=== PATIENT | male | born 1970 | race Caucasian/White ===

== ENCOUNTER 2017-09-09 15:11 | Inpatient (IN) | payer OTHER ==
[2017-09-09 18:45] VITALS: BMI 28.4
[2017-09-09] MEDS ORDERED: MELATONIN 5 MG TABLETS PO PRN (22:00)
--- NOTE | 2017-09-09 23:40 | HP ---
CIWA Score - CIWA Score Nausea/Vomitin Muscle Tremors: 4-Moderate,w/Arms Extend Anxiety: 4-Mod. Anxious/Guarded Agitation: 4-Moderately Restless Paroxysmal Sweats: 3 Orientation: 2-Disoriented Date<2 days Tacttile Disturbances: 0-None Auditory Disturbances: 0-None Visual Disturbances: 0-None Headache: 3-Moderate CIWA-Ar Total Score: 23 Admission ROS BHS - HPI Chief Complaint: WITHDRAWAL SX'S Allergies/Adverse Reactions: Allergies Allergy/AdvReac Type Severity Reaction Status Date / Time No Known Allergies Allergy Verified 09/09/17 20:14 History of Present Illness: 47 Y.O. MALE WITH LONG HX/O ALCOHOLISM HERE FOR DETOX. THIS IS CLIENT FIRST TIME HERE. DENIES ANY SIGNIFICANT PERIOD OF CLEAN TIME. DENIES SI/HI, A/V HALLUCINATIONS. PMHX HIV, HEPC, NON COMPLIANT WITH MEDICATIONS DUE TO DRINKING. Exam Limitations: No Limitations - Ebola screening Have you traveled outside of the country in the last 21 days: No (N) Have you had contact with anyone from an Ebola affected area: No Have you been sick,other than usual withdrawal symptoms: No Do you have a fever: No - Review of Systems Constitutional: Chills, Night Sweats, Changes in sleep EENT: reports: Dental Problems (missing teeth) Respiratory: reports: No Symptoms reported Cardiac: reports: No Symptoms Reported GI: reports: Diarrhea, Nausea, Poor Fluid Intake : reports: No Symptoms Reported Musculoskeletal: reports: Back Pain (CHRONIC) Integumentary: reports: No Symptoms Reported Neuro: reports: Seizure (ETOH RELATED) Endocrine: reports: No Symptoms Reported Hematology: reports: No Symptoms Reported Psychiatric: reports: Anxious, Depressed Other Systems: Reviewed and Negative Patient History - Patient Medical History Hx Anemia: No Hx Asthma: No Hx Chronic Obstructive Pulmonary Disease (COPD): No Hx Cancer: No Hx Cardiac Disorders: No Hx Congestive Heart Failure: No Hx Hypertension: No Hx Hypercholesterolemia: No Hx Pacemaker: No HX Cerebrovascular Accident: No Hx Seizures: No Hx Dementia: No Hx Diabetes: No Hx Gastrointestinal Disorders: No Hx Liver Disease: No Hx Genitourinary Disorders: No Hx Sexually Transmitted Disorders: No Hx Renal Disease (ESRD): No Hx Thyroid Disease: No Hx Human Immunodeficiency Virus (HIV): Yes (NON COMPLAINT DUE TO DRINKING) Hx Hepatitis C: Yes (NON COMPLAINT WITH TXMENT) Hx Depression: Yes Hx Suicide Attempt: No Hx Bipolar Disorder: No Hx Schizophrenia: Yes Other Medical History: ANXIETY - Patient Surgical History Past Surgical History: Yes Hx Orthopedic Surgery: Yes (Bilateral Knee replacement 2006) Anesthesia Reaction: No - PPD History Previous Implant?: Yes Documented Results: Positive w/o proof Implanted On Prior [facility] Admission?: No PPD to be Administered?: No - Smoking Cessation Smoking history: Current every day smoker Have you smoked in the past 12 months: Yes Aproximately how many cigarettes per day: 20 Cigars Per Day: 0 Hx Chewing Tobacco Use: No Initiated information on smoking cessation: Yes 'Breaking Loose' booklet given: 09/09/17 - Substance & Tx. History Hx Alcohol Use: Yes Hx Substance Use: Yes Substance Use Type: Alcohol, Cocaine, Marijuana Hx Substance Use Treatment: Yes ([facility]) - Substances Abused Alcohol Route: Oral Frequency: Daily Amount used: vodka 1 quart, beer 1 of 40oz Age of first use: 14 Date of Last Use: 09/08/17 Marijuana/Hashish Route: Smoking Frequency: 1-3 times last 30 days Amount used: $5 Age of first use: 16 Date of Last Use: 08/25/17 Cocaine Route: Smoking Frequency: 1-3 times last 30 days Amount used: $5 Age of first use: 16 Date of Last Use: 08/25/17 Family Disease History - Family Disease History Family Disease History: Other: Father (ALCOHOLIC), Mother (ALCOHOLIC), Brother ( ALCOHOLIC/DRUGS) Admission Physical Exam BHS - Vital Signs Vital Signs: Vital Signs - 24 hr 09/09/17 18:42 Temperature 98.6 F Pulse Rate 84 Respiratory 22 Rate Blood Pressure 155/104 - Physical General Appearance: Yes: Mild Distress, Alcohol on Breath, Tremorous, Sweating, Anxious HEENTM: Yes: EOMI, Normocephalic, Normal Voice, BONIFACIO, Pharynx Normal Respiratory: Yes: Chest Non-Tender, Lungs Clear, Normal Breath Sounds, No Respiratory Distress, No Accessory Muscle Use Neck: Yes: No masses,lesions,Nodules, Supple, Trachea in good position Breast: Yes: Breast Exam Deferred Cardiology: Yes: Regular Rhythm, Regular Rate, S1, S2 Abdominal: Yes: Normal Bowel Sounds, Non Tender, Soft Genitourinary: Yes: Within Normal Limits Back: Yes: Normal Inspection Musculoskeletal: Yes: full range of Motion, Gait Steady Extremities: Yes: Normal Capillary Refill, Normal Range of Motion, Non-Tender, Tremors Neurological: Yes: insurance legal assistant II-XII NML intact, Alert, Motor Strength 5/5, Disoriented Integumentary: Yes: Warm, Moist, Other (FLUSHING) Lymphatic: Yes: Within Normal Limits - Diagnostic (1) Alcohol dependence with uncomplicated withdrawal Current Visit: Yes Status: Chronic (2) Cocaine abuse, uncomplicated Current Visit: Yes Status: Chronic (3) Cannabis abuse, uncomplicated Current Visit: Yes Status: Chronic (4) History of positive PPD Current Visit: Yes Status: Chronic (5) Hepatitis C Current Visit: Yes Status: Chronic (6) HIV (human immunodeficiency virus infection) Current Visit: Yes Status: Chronic (7) Nicotine dependence Current Visit: Yes Status: Acute Qualifiers: Nicotine product type: cigarettes Substance use status: uncomplicated Qualified Code(s): F17.210 - Nicotine dependence, cigarettes, uncomplicated Cleared for Admission [facility] - Detox or Rehab [facility] Level of Care: Medically Managed Detox Regimen/Protocol: Ra Claeared for Rehab Admission: No S Breath Alcohol Content Breath Alcohol Content: 0 Urine Drug Screen - Results Drug Screen Negative: No Urine Drug Screen Results: THC-Marijuana, BRIGIDO-Cocaine, BZO-Benzodiazepines
[2017-09-09] MEDS ORDERED: MAGNESIUM CITRATE 300 ML BOTTLE PO PRN (23:41)
[2017-09-09] MEDS ORDERED: IBUPROFEN 400 MG TABLET (FP) PO PRN (23:41)
[2017-09-09] MEDS ORDERED: LOPERAMIDE HCL 2 MG CAPSULE PO PRN (23:41)
[2017-09-09] MEDS ORDERED: guaiFENesin/D-METHORPHAN HB 10 ML UNIT-DOSE CUPS PO PRN (23:41)
[2017-09-09] MEDS ORDERED: hydrOXYzine PAMOATE 50 MG CAPSULE (FP) PO PRN (23:41)
[2017-09-09] MEDS ORDERED: MENTHOL/PHENOL 1 EACH UD MM PRN (23:41)
[2017-09-09] MEDS ORDERED: MAGNESIUM HYDROX 2400MG/30ML ORAL SUSPENSION 30 ML CUP PO PRN (23:41)
[2017-09-09] MEDS ORDERED: NICOTINE POLACRILEX 2 MG GUM BC PRN (23:41)
[2017-09-09] MEDS ORDERED: P-EPHED 60MG/TRIPROLIDI 2.5MG TABLET PO PRN (23:41)
[2017-09-09] MEDS ORDERED: MAG HYDROX/AL HYDROX/SIMETH 30 ML UNIT-DOSE CUP PO PRN (23:41)
[2017-09-10] MEDS: ACETAMINOPHEN 325 MG TABLET (FP) PO PRN ×2 (00:21→17:31)
[2017-09-10] MEDS: chlordiazePOXIDE HCL 25 MG CAPSULE PO SCH ×5 (00:21→22:20)
[2017-09-10 10:09] LABS: HEMATOCRIT 40.6 % (35.4-49); HEMOGLOBIN 14.1 GM/dL (11.7-16.9); MCH 31.3 pg (25.7-33.7); MCHC 34.7 g/dl (32.0-35.9); MEAN CELL VOLUME 90.2 fl (80-96); MEAN PLT VOLUME 7.6 fl (7.5-11.1); PLATELET COUNT 134 K/MM3 (134-434)
[2017-09-10 10:17] LABS: ALBUMIN 3.7 g/dl (3.4-5.0); ANION GAP 5 (8-16); BLOOD UREA NITROGEN 11 mg/dL (7-18); CALCIUM 8.4 mg/dL (8.5-10.1); CHLORIDE 100 mmol/L (98-107); CO2 35 mmol/L (21-32); GLUCOSE,RANDOM 106 mg/dL (74-106); POTASSIUM 3.7 mmol/L (3.5-5.1); SODIUM 140 mmol/L (136-145)
[2017-09-10 10:22] LABS: ALK PHOS 65 U/L (45-117); CREATININE 0.7 mg/dL (0.7-1.3); SGOT/AST 49 U/L (15-37); SGPT/ALT 40 U/L (12-78); TOT PROT 7.9 g/dl (6.4-8.2)
[2017-09-10] MEDS: NICOTINE 21 MG/24 HOURS TOPICAL PATCH TD SCH (10:26)
[2017-09-10] MEDS: PRENATAL VITAMINS W/ FOLIC ACID TABLET (FP) PO SCH (10:26)
--- NOTE | 2017-09-10 11:07 | PN ---
S CIWA - CIWA Score Nausea/Vomitin-No Nausea/No Vomiting Muscle Tremors: 4-Moderate,w/Arms Extend Anxiety: 4-Mod. Anxious/Guarded Agitation: 4-Moderately Restless Paroxysmal Sweats: 1-Minimal Palms Moist Orientation: 0-Oriented Tacttile Disturbances: 0-None Auditory Disturbances: 0-None Visual Disturbances: 0-None Headache: 0-None Present CIWA-Ar Total Score: 13 BHS Progress Note (SOAP) Subjective: ANXIETY,SWEATS, TREMORS,FATIGUE. REPORTS LIBRIUM EFFECTIVE. Objective: 09/10/17 11:05 Vital Signs 09/10/17 09/10/17 09/10/17 03:30 06:13 06:30 Temperature 96.9 F L Pulse Rate 65 Respiratory 18 20 18 Rate Blood Pressure 139/92 Laboratory Tests 09/10/17 09/10/17 07:30 07:30 WBC 5.0 RBC 4.50 Hgb 14.1 Hct 40.6 MCV 90.2 MCH 31.3 MCHC 34.7 RDW 14.0 Plt Count 134 MPV 7.6 Sodium 140 Potassium 3.7 Chloride 100 Carbon Dioxide 35 H Anion Gap 5 L BUN 11 Creatinine 0.7 Creat Clearance w eGFR > 60 Random Glucose 106 Calcium 8.4 L Total Bilirubin 1.0 AST 49 H ALT 40 Alkaline Phosphatase 65 Total Protein 7.9 Albumin 3.7 OTHER LABS PENDING Assessment: 09/10/17 11:06 WITHDRAWAL SX Plan: CONTINUE DETOX
--- NOTE | 2017-09-10 12:03 | EKG ---
Test Reason : Blood Pressure : / mmHG Vent. Rate : 060 BPM Atrial Rate : 060 BPM P-R Int : 170 ms QRS Dur : 106 ms QT Int : 424 ms P-R-T Axes : 022 004 033 degrees QTc Int : 424 ms NORMAL SINUS RHYTHM NORMAL ECG NO PREVIOUS ECGS AVAILABLE Confirmed by DYANA NAVARRO MD ([id number]) on 09/10/2017 12:02:52 PM Referred By: Confirmed By:DYANA NAVARRO MD
--- NOTE | 2017-09-10 13:23 | CONSULT ---
[facility] Psychiatric Consult - Data Date of interview: 09/10/17 Admission source: [facility] Identifying data: First admission to [facility] for thi 47 y/o male seeking detox treatment on for alcohol,cocaine and cannabis dependence.Patient is single without dependents,domiciled,unemployed and supported on [employer] funds. Substance Abuse History: Confirmed by patient in this session.Smoking history: Current every day smoker. Have you smoked in the past 12 months: Yes. Aproximately how many cigarettes per day: 20. Cigars Per Day: 0. Hx Chewing Tobacco Use: No. Initiated information on smoking cessation: Yes. 'Breaking Loose' booklet given: 09/09/17. - Substance & Tx. History. Hx Alcohol Use: Yes. Hx Substance Use: Yes. Substance Use Type: Alcohol, Cocaine, Marijuana. Hx Substance Use Treatment: Yes ([facility]). - Substances Abused. Alcohol. Route: Oral. Frequency: Daily. Amount used: vodka 1 quart, beer 1 of 40oz. Age of first use: 14. Date of Last Use: 09/08/17. Marijuana/ Hashish. Route: Smoking. Frequency: 1-3 times last 30 days. Amount used: $5. Age of first use: 16. Date of Last Use: 08/25/17. Cocaine. Route: Smoking. Frequency: 1-3 times last 30 days. Amount used: $5. Age of first use : 16. Date of Last Use: 08/25/17 Medical History: HIV infection since 1996 (non-adherent to HAART medications), hepatitis C and a history of bilateral knee replacement. Psychiatric History: Patient denies. Physical/Sexual Abuse/Trauma History: Patient denies. Additional Comment: Urine Drug Screen Results: THC-Marijuana, BRIGIDO-Cocaine, BZO- Benzodiazepines.Noted. Mental Status Exam - Mental Status Exam Alert and Oriented to: Time, Place, Person Cognitive Function: Good Patient Appearance: Well Groomed (tattoos on both arms + forearms) Mood: Euthymic Affect: Appropriate, Normal Range Patient Behavior: Appropriate, Cooperative Speech Pattern: Clear Voice Loudness: Normal Thought Process: Intact, Goal Oriented Thought Disorder: Not Present Hallucinations: Denies Suicidal Ideation: Denies Homicidal Ideation: Denies Insight/Judgement: Poor Sleep: Well Appetite: Good Muscle strength/Tone: Normal Gait/Station: Normal Psychiatric Findings - Problem List ([place] 1, 2,3) (1) Alcohol dependence with uncomplicated withdrawal Current Visit: Yes Status: Acute (2) Nicotine dependence Current Visit: Yes Status: Acute Qualifiers: Nicotine product type: cigarettes Substance use status: in withdrawal Qualified Code(s): F17.213 - Nicotine dependence, cigarettes, with withdrawal (3) Cannabis dependence Current Visit: Yes Status: Acute (4) Cocaine dependence Current Visit: Yes Status: Acute - Initial Treatment Plan Initial Treatment Plan: Psychoeducation.Detoxification in progress.Observation.
[2017-09-10 18:19] LABS: URINE APPEARANCE CLEAR; URINE BILIRUBIN NEGATIVE (<2.0 mg/dL); URINE COLOR YELLOW; URINE GLUCOSE (UA) NEGATIVE (NEGATIVE); URINE KETONE NEGATIVE (NEGATIVE); URINE LEUK ESTERASE NEGATIVE (NEGATIVE); URINE NITRITE NEGATIVE (NEGATIVE); URINE UROBILINOGEN NEGATIVE mg/dL (0.2-1.0)
[2017-09-10 18:20] LABS: URINE PROTEIN 2+ (NEGATIVE)
[2017-09-10 18:28] LABS: URINE MUCUS RARE
[2017-09-10] MEDS: chlordiazePOXIDE HCL 25 MG CAPSULE PO PRN (20:46)
[2017-09-10] MEDS ORDERED: THIAMINE HCL 100 MG TABLET (FP) PO SCH (22:00)
[2017-09-10] MEDS: TOLNAFTATE 1% CREAM 15 GM TUBE TP SCH (22:19)
[2017-09-11] MEDS: chlordiazePOXIDE HCL 25 MG CAPSULE PO PRN (01:19)
[2017-09-11] MEDS: chlordiazePOXIDE HCL 25 MG CAPSULE PO SCH ×2 (04:57→10:43)
[2017-09-11] MEDS: PRENATAL VITAMINS W/ FOLIC ACID TABLET (FP) PO SCH (10:43)
[2017-09-11] MEDS: ACETAMINOPHEN 325 MG TABLET (FP) PO PRN (10:43)
[2017-09-11] MEDS: TOLNAFTATE 1% CREAM 15 GM TUBE TP SCH (10:45)
[2017-09-11] MEDS: NICOTINE 21 MG/24 HOURS TOPICAL PATCH TD SCH (10:45)
--- NOTE | 2017-09-11 11:23 | PN ---
[facility] CIWA - CIWA Score Nausea/Vomitin-No Nausea/No Vomiting Muscle Tremors: 3 Anxiety: 4-Mod. Anxious/Guarded Agitation: 3 Paroxysmal Sweats: No Perspiration Orientation: 0-Oriented Tacttile Disturbances: 2-Mild Itch/Numbness/Burn Auditory Disturbances: 2-Mild Harshness/Frighten Visual Disturbances: 3-Moderate Sensitivity Headache: 0-None Present CIWA-Ar Total Score: 17 S Progress Note (SOAP) Subjective: Tremors, Fatigue, Anxious, Interrupted Sleep. Objective: PATIENT A & O X 3. NO ACUTE DISTRESS. PATIENT DENIES CHEST PAIN. 09/11/17 11:22 Vital Signs Temperature 96.7 F L 09/11/17 09:30 Pulse Rate 74 09/11/17 09:30 Respiratory Rate 18 09/11/17 09:30 Blood Pressure 107/71 09/11/17 09:30 O2 Sat by Pulse Oximetry (%) Laboratory Tests 09/10/17 09/10/17 09/10/17 07:30 07:30 07:30 WBC 5.0 RBC 4.50 Hgb 14.1 Hct 40.6 MCV 90.2 MCH 31.3 MCHC 34.7 RDW 14.0 Plt Count 134 MPV 7.6 Sodium 140 Potassium 3.7 Chloride 100 Carbon Dioxide 35 H Anion Gap 5 L BUN 11 Creatinine 0.7 Creat Clearance w eGFR > 60 Random Glucose 106 Calcium 8.4 L Total Bilirubin 1.0 AST 49 H ALT 40 Alkaline Phosphatase 65 Total Protein 7.9 Albumin 3.7 Urine Color Urine Appearance Urine pH Ur Specific [place] Urine Protein Urine Glucose (UA) Urine Ketones Urine Blood Urine Nitrite Urine Bilirubin Urine Urobilinogen Ur Leukocyte Esterase Urine WBC (Auto) Urine RBC (Auto) Urine Mucus RPR Titer Nonreactive 09/10/17 17:45 WBC RBC Hgb Hct MCV MCH MCHC RDW Plt Count MPV Sodium Potassium Chloride Carbon Dioxide Anion Gap BUN Creatinine Creat Clearance w eGFR Random Glucose Calcium Total Bilirubin AST ALT Alkaline Phosphatase Total Protein Albumin Urine Color Yellow Urine Appearance Clear Urine pH 7.0 Ur Specific [place] 1.020 Urine Protein 2+ H Urine Glucose (UA) Negative Urine Ketones Negative Urine Blood 1+ H Urine Nitrite Negative Urine Bilirubin Negative Urine Urobilinogen Negative Ur Leukocyte Esterase Negative Urine WBC (Auto) <1 Urine RBC (Auto) 9 Urine Mucus Rare RPR Titer LABS NOTED. 09/11/17 11:23 Assessment: 09/11/17 11:22 WITHDRAWAL SYMPTOMS. Plan: CONTINUE DETOX. INCREASE DAILY PO FLUID INTAKE.
[2017-09-11 14:20] VITALS: BP 135/90; PULSE 72; TEMP 97.2
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
[2017-09-11] MEDS ORDERED: chlordiazePOXIDE 5 MG CAPSULE PO SCH (23:00)
[2017-09-12] MEDS ORDERED: chlordiazePOXIDE HCL 10 MG CAPSULE PO SCH (23:00)
== END 2017-09-11 14:30 | disposition home or self-care (01) | DRG 774 ==
LOC: YASAS 15:11 → Y3N 20:35
PROVIDERS: ADMIT Internal Medicine; ATTEND Internal Medicine
PROC: HZ2ZZZZ Detoxification Services for Substance Abuse Treatment (ICD-10-PCS; principal; 2017-09-09)
DX: F10.230 Alcohol dependence with withdrawal, uncomplicated (principal); F14.10 Cocaine abuse, uncomplicated; F12.10 Cannabis abuse, uncomplicated; F17.213 Nicotine dependence, cigarettes, with withdrawal; Z21 Asymptomatic human immunodeficiency virus [HIV] infection status; B18.2 Chronic viral hepatitis C; R76.11 Nonspecific reaction to tuberculin skin test without active tuberculosis; Z91.14 Patient's other noncompliance with medication regimen; Z96.653 Presence of artificial knee joint, bilateral
CPT/HCPCS: 36415; 71046-TC-FY; 80053; 81003; 81015; 85027; 86593; 93005; 93010

== ENCOUNTER 2020-02-02 21:47 | Emergency (ER) | payer OTHER ==
[2020-02-02 22:41] VITALS: BP 138/99; PULSE 86; TEMP 98.3; BMI 25.1
--- NOTE | 2020-02-03 01:19 | PDOC ---
History of Present Illness - General Chief Complaint: Abnormal Lab Results (Outside) Stated Complaint: ABNORMAL LABS History Source: Patient Exam Limitations: No Limitations - History of Present Illness Initial Comments: 02/03/20 06:43 49 yo M with a hx of HTN, HLD, DM, CAD, ETOH abuse (last alcoholic drink 20-24 hours ago 1/ of vodka), and cocaine abuse presents to the emergency department with alcohol withdrawal. Per [facility], the patient presented to their facility wanting alcohol detoxification. Per [facility], they had run out of beds at their facility and forwarded him to our emergency department. Currently, the patient states they have tremors throughout their body, but denies the following: nausea, vomiting, fevers, chills, SOB, chest pain, eye pain, throat pain, dysuria, back pain, neck pain, auditory/visual/tactile hallucination, agitation, and leg pain/swelling. Allergies: NKDA Past History - Medical History Allergies/Adverse Reactions: Allergies Allergy/AdvReac Type Severity Reaction Status Date / Time No Known Allergies Allergy Verified 02/04/20 12:04 Home Medications: Ambulatory Orders Atorvastatin Calcium 40 mg PO HS 02/03/20 Bictegrav/Emtricit/Tenofov Ala [Biktarvy 50-200-25 mg Tablet] 1 each PO DAILY 02/03/20 Buprenorphine HCl/Naloxone HCl [Buprenorp-Nalox 8-2 mg Sl Film] 1 each SL TID 02/03/20 Sacubitril/Valsartan [Entresto 49 mg-51 mg Tablet] 1 each PO BID 02/03/20 COPD: No - Psycho-Social/Smoking History Smoking History: Current every day smoker Number of Cigarettes Smoked Daily: 20 Information on smoking cessation initiated: No - Substance Abuse Hx (Audit-C & DAST Scrn) How often the patient has a drink containing alcohol: 4 0r more times/wk Number of drinks the patient has on a typical day: 10 or more How often the patient has six or more drinks on one occasion: Daily or almost daily Score: In Men: 4 or > Positive; In Women: 3 or > Positive: 12 Screen Result (Pos requires Nsg. Audit-10AR): Positive In the last yr the pt used illegal drug/Rx for NonMed reason: Yes Score: Yes response is considered Positive: 1 Screen Result (Positive result requires Nsg. DAST-10): Positive Review of Systems - Review of Systems Able to Perform ROS?: Yes Is the patient limited Maltese proficient: No Constitutional: No: Chills, Diaphoresis, Fever, Weakness HEENTM: No: Eye Pain, Nose Pain, Throat Pain, Mouth Pain Respiratory: No: Cough, Shortness of Breath Cardiac (ROS): No: Chest Pain, Lightheadedness ABD/GI: No: Constipated, Diarrhea, Nausea, Rectal Bleeding, Vomiting, Tarry Stools : No: Dysuria, Hematuria Musculoskeletal: No: Back Pain, Joint Pain, Neck Pain Integumentary: No: Rash Neurological: Yes: Tremors (alcohol related tremors) Psychiatric: No: Change in Appetite Endocrine: No: Unexplained Weight Gain Hematologic/Lymphatic: No: Anemia *Physical Exam - Vital Signs Last Vital Signs Temp Pulse Resp BP Pulse Ox 98.3 F 86 19 138/99 99 02/02/20 22:12 02/02/20 22:12 02/02/20 22:12 02/02/20 22:12 02/02/20 22:12 - Physical Exam General Appearance: Yes: Nourished, Appropriately Dressed, Intoxicated, Other (generalized tremors on exam noted. tongue fasciculations noted). No: Apparent Distress, Alcohol on Breath HEENT: positive: EOMI, BONIFACIO, Normal Voice, Pharynx Normal, Hearing Grossly Normal. negative: Scleral Icterus (R), Scleral Icterus (L) Neck: positive: Trachea midline, Supple. negative: Tender Respiratory/Chest: positive: Lungs Clear, Normal Breath Sounds. negative: Chest Tender, Respiratory Distress, Accessory Muscle Use Cardiovascular: positive: Regular Rhythm, Regular Rate, S1, S2. negative: Systolic Murmur Gastrointestinal/Abdominal: positive: Normal Bowel Sounds, Flat, Soft. negative: Tender Lymphatic: negative: Adenopathy Musculoskeletal: positive: Normal Inspection. negative: CVA Tenderness, Vertebral Tenderness Extremity: positive: Normal Capillary Refill, Normal Inspection, Normal Range of Motion. negative: Tender, Pedal Edema, Swelling Integumentary: positive: Normal Color, Dry, Warm Neurologic: positive: Fully Oriented, Alert, Normal Mood/Affect Medical Decision Making - Medical Decision Making 49 yo M with a hx of HTN, HLD, DM, CAD, ETOH abuse (last alcoholic drink 20-24 hours ago 05/02 of vodka), and cocaine abuse presents to the emergency department with alcohol withdrawal. Initial vitals: Initial Vital Signs Temp Pulse Resp BP Pulse Ox 98.3 F 86 19 138/99 99 02/02/20 22:12 02/02/20 22:12 02/02/20 22:12 02/02/20 22:12 02/02/20 22:12 Work up: patient presents to the emergency department with tremors secondary to alcohol withdrawal I received the call from [facility] regarding this patient's care. Per [facility], they do not have a bed available for the patient and that he would require the start of his detoxification treatment at [facility] until a bed becomes available in the AM Per the patient, he denies the following: auditory/visual/tactile hallucination, mood changing, anxiety, nausea, vomiting, chest pain, SOB, and abdominal pain. Per the patient, he states he feels tremulous that is his usual baseline when he doesnt drink alcohol of which is last drink was >24 hours prior to presentation. patient likely is having simple alcohol detoxification. no suspicion for DT as the patient does not have clinical symptoms consistent with DT. Will provide the patient with librium and ativan for tremor control. per the patient, no other symptomatic complaint. Will re-assess the patient Patient was re-assessed. tremors markedly reduced and the patient is cleared to proceed to [facility] for detoxification. Patient was picked up by security and sent over. Discharge - Discharge Information Problems reviewed: Yes Clinical Impression/Diagnosis: ETOH abuse Disposition: HOME - Admission No - Follow up/Referral - Patient Discharge Instructions Patient Printed Discharge Instructions: Alcohol Use Disorder, DI for Alcohol Use Disorder, Drug and Alcohol Withdrawal, DI for Drug or Alcohol Withdrawal Additional Instructions: You were seen in the emergency department for your alcohol withdrawal. We will send you to [facility]. Please return to the emergency department if you have worsening symptoms or new concerning symptoms. Please follow up with your primary medical doctor within 1 week after discharge for follow up care and trae carmichael. - Post Discharge Activity
[2020-02-03] MEDS ORDERED: chlordiazePOXIDE HCL 25 MG CAPSULE PO ONE (01:48)
[2020-02-03] MEDS ORDERED: LORazepam 1 MG TABLET PO ONE (02:22)
--- NOTE | 2020-02-03 02:23 | PDOC ---
Attending Attestation - Resident Resident Name: Markel Drake - ED Attending Attestation I have performed the following: I have examined & evaluated the patient, The case was reviewed & discussed with the resident, I agree w/resident's findings & plan, Exceptions are as noted - HPI HPI: 02/03/20 02:18 49 yo M h/o etoh abuse sent from [facility] for etoh withdrawal since they do not have available beds at present time. [facility] stated they will likely have beds in the AM and he can return to them in the morning for detox. Patient denies all medical complaints including visual, tactile or auditory hallucinations. Denies cough, CP, SOB abdominal pain, n/v/d. - Physicial Exam PE: 02/03/20 02:20 General: non-toxic appearing, tremulous HEENT: NCAT Chest: CTAB, good air entry CVS: + s1 s2, RRR Abdomen: soft, nt , no rebound, no guarding - Medical Decision Making 02/03/20 02:20 49 yo M p/w etoh withdrawal, awaiting available detox bed at [facility] in the AM, denies medical complaints or trauma, no indication for additional workup at this time. Plan: -librium -ativan -will hold patient in ED until morning and likely escort to [facility] in AM pending available beds This clinical encounter is taking place during a federal and state health care emergency attributable to the novel Bobo Virus pandemic. The Cutting Inspector of the Department of Health and Human Services has declared, pursuant to the Public Health Service Act 319F-3 (42 U.S.C. 247d-6d), that a covered persons activities related to medical countermeasures against COVID-19 will be immune from liability under Federal and State law. Discharge - Discharge Information Problems reviewed: Yes Clinical Impression/Diagnosis: ETOH abuse - Follow up/Referral - Patient Discharge Instructions - Post Discharge Activity
[2020-02-03] MEDS ORDERED: LORazepam 1 MG TABLET ONE (03:36)
--- NOTE | 2020-02-03 07:52 | PDOC ---
*Physical Exam - Vital Signs Last Vital Signs Temp Pulse Resp BP Pulse Ox 98.3 F 86 19 138/99 99 02/02/20 22:12 02/02/20 22:12 02/02/20 22:12 02/02/20 22:12 02/02/20 22:12 ED Treatment Course - Medications Given in the ED: ED Medications Discontinued Medications Generic Name Dose Route Start Last Admin Trade Name Damián PRN Reason Stop Dose Admin Chlordiazepoxide HCl 50 mg 02/03/20 01:48 02/03/20 02:56 Librium - PO 02/03/20 01:49 50 mg ONCE ONE Administration Lorazepam 2 mg 02/03/20 02:22 02/03/20 03:39 Ativan - PO 02/03/20 02:23 2 mg ONCE ONE Administration Medical Decision Making - Medical Decision Making 02/03/20 07:49 Sign out received from Dr Drake. Meliton Swift is a 49yo man with a PMH of HTN, HLD, DM, CAD and substance abuse (alcohol and cocaine) who was sent to the ED from detox overnight with alcohol withdrawal. He was given librium overnight with resolution of his symptoms. He is currently sleeping comfortably, wakened easily with no complaints. Will attempt to transfer patient back to [facility]. 02/03/20 08:22 - Multiple phone calls to [facility], no answer - Pt requesting to leave and be sent to detox. Now awake, alert, sitting comfortably in bed. No current s/s of active withdrawal. 02/03/20 08:29 - Spoke to detox physician at [facility]. Beds are now available, and the patient may be sent for further evaluation. Discussed with Dr Karine Ramirez PGY3 Discharge - Discharge Information Problems reviewed: Yes Clinical Impression/Diagnosis: ETOH abuse Disposition: HOME - Admission No - Follow up/Referral - Patient Discharge Instructions Patient Printed Discharge Instructions: Alcohol Use Disorder, DI for Alcohol Use Disorder, Drug and Alcohol Withdrawal, DI for Drug or Alcohol Withdrawal Additional Instructions: You were seen in the emergency department for your alcohol withdrawal. We will send you to [facility]. Please return to the emergency department if you have worsening symptoms or new concerning symptoms. Please follow up with your primary medical doctor within 1 week after discharge for follow up care and management. - Post Discharge Activity
== END 2020-02-03 08:59 | disposition home or self-care (01) ==
LOC: JER 21:47 → MERGE 21:47 → JER 02-03 08:59
DX: F10.239 Alcohol dependence with withdrawal, unspecified (principal)
CPT/HCPCS: 99283-25

== ENCOUNTER 2020-02-03 09:33 | Inpatient (IN) | payer OTHER ==
--- NOTE | 2020-02-03 09:57 | BHS.RME ---
Substance Use & Tx History - Substance Use History Alcohol Substance amount: /5 vodka Frequency of use: Daily Substance route: Oral Date of Last Use: 02/02/20 (started age 14) Nicotine Substance amount: 1 pack Frequency of use: Daily Substance route: Smoking Date of Last Use: 02/02/20 (started age 15) Physical/Psych/Mental Status - Behavior General Behavior: Increased activity (restlessness, agitation) Eye Contact: Normal - Cooperativeness Cooperativeness: Cooperative - Thinking Thought Processes: Tight, Logical, Goal Directed - Physical Health Problems Is patient presently having any pain?: No Does patient presently have any injuries (include location): No Does patient currently have a fever: No Is patient : No CIWA Nausea/Vomitin-Mild Nausea/No Vomiting Muscle Tremors: 3 Anxiety: 4-Mod. Anxious/Guarded Agitation: 4-Moderately Restless Paroxysmal Sweats: 2 Orientation: 0-Oriented Tacttile Disturbances: 0-None Auditory Disturbances: 0-None Visual Disturbances: 0-None Headache: 0-None Present CIWA-Ar Total Score: 14
[2020-02-03 10:35] VITALS: BMI 24.2
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
[2020-02-03] MEDS ORDERED: MAGNESIUM CITRATE 300 ML BOTTLE PO PRN (11:13)
[2020-02-03] MEDS ORDERED: NICOTINE POLACRILEX 2 MG GUM BUC PRN (11:13)
[2020-02-03] MEDS ORDERED: MAGNESIUM HYDROX 2400MG/30ML ORAL SUSPENSION 30 ML CUP PO PRN (11:13)
[2020-02-03] MEDS ORDERED: METHOCARBAMOL 500 MG TABLET PO PRN (11:13)
[2020-02-03] MEDS ORDERED: ONDANSETRON *ODT* 4 MG TABLET SL PRN (11:13)
[2020-02-03] MEDS ORDERED: MENTHOL/PHENOL 1 EACH UD MM PRN (11:13)
[2020-02-03] MEDS ORDERED: LORazepam 1 MG TABLET PO PRN (11:13)
[2020-02-03] MEDS ORDERED: MAG HYDROX/AL HYDROX/SIMETH 30 ML UNIT-DOSE CUP PO PRN (11:13)
[2020-02-03] MEDS ORDERED: ACETAMINOPHEN 325 MG TABLET (FP) PO PRN ×2 (11:13)
[2020-02-03] MEDS ORDERED: BISMUTH SUBSALICYLATE 262 MG/15 ML BTL PO PRN (11:13)
[2020-02-03] MEDS ORDERED: IBUPROFEN 400 MG TABLET (FP) PO PRN (11:13)
[2020-02-03] MEDS ORDERED: NICOTINE 21 MG/24 HOURS TOPICAL PATCH TD SCH (11:30)
--- OUTSIDE RECORDS SUMMARY | 2020-02-03 12:08 | XMS ---
:1970 Author Organization [facility] Support Name Relationship Address Phone UE Unavailable Unavailable Unavailable MAXIMO ARAIZA FRIEND [address] [address] CONRAD DOZIER FND Unavailable Re-disclosure Warning The records that you are about to access may contain information from federally- assisted alcohol or drug abuse programs. If such information is present, then the following federally mandated warning applies: This information has been disclosed to you from records protected by federal confidentiality rules (42 CFR part 2). The federal rules prohibit you from making any further disclosure of this information unless further disclosure is expressly permitted by the written consent of the person to whom it pertains or as otherwise permitted by 42 CFR part 2. A general authorization for the release of medical or other information is NOT sufficient for this purpose. The Federal rules restrict any use of the information to criminally investigate or prosecute any alcohol or drug abuse patient.The records that you are about to access may contain highly sensitive health information, the redisclosure of which is protected by Article 27-F of the [facility] Public Health law. If you continue you may haveaccess to information: Regarding HIV / AIDS; Provided by facilities licensed or operated by the [facility] Office of Mental Health; or Provided by the [facility] Office for People With Developmental Disabilities. If such information is present, then the following [facility] mandated warning applies: This information has been disclosed to you from confidential records which are protected by state law. State law prohibits you from making any further disclosure of this information without the specific written consent of the person to whom it pertains, or as otherwise permitted by law. Any unauthorized further disclosure in violation of state law may result in a fine or correction sentence or both. A general authorization for the release of medical or other information is NOT sufficient authorization for further disclosure. Insurance Providers Payer name Policy type Policy ID Covered Covered green party's Policy P fernanda / Coverage green party ID relationship to Mor[employer] Inf ormation type morin [employer] [id number] SP [id number] [employer] [id number] SP [id number] [employer] AMIDAC[employer] [id number] SP [id number] [place] PAYOR [id number] Self [id number] - [place] [id number] Self [id number] SELF PAY/NON PAR [id number] Self [id number] NEIGHBORHOOD [id number] Self [id number] [facility] MEDICAID [id number] Patient [id number] T COMMERCIAL MISC [id number] Patient [id number] MEDICAID [id number] Patient [id number] MEDICAID MISSING Patient MISSING
[2020-02-03] MEDS: LORazepam 2 MG TABLET PO SCH ×3 (12:29→22:22)
[2020-02-03 14:29] LABS: HEMATOCRIT 36.8 % (35.4-49); HEMOGLOBIN 12.5 GM/dL (11.7-16.9); MCH 35.3 pg (25.7-33.7); MCHC 33.9 g/dl (32.0-35.9); MEAN CELL VOLUME 104.2 fl (80-96); MEAN PLT VOLUME 8.3 fl (7.5-11.1); PLATELET COUNT 141 K/MM3 (134-434); RBC 3.53 M/mm3 (4.00-5.60); RDW 14.3 % (11.9-15.9); WHITE BLOOD COUNT 3.5 K/mm3 (4.0-10.0)
[2020-02-03] MEDS: hydrOXYzine PAMOATE 25 MG CAPSULE (FP) PO SCH ×3 (14:57→22:22)
[2020-02-03 15:06] LABS: ALBUMIN 4.1 g/dl (3.4-5.0); BLOOD UREA NITROGEN 10.8 mg/dL (7-18); CREATININE 0.9 mg/dL (0.55-1.3); POTASSIUM 3.4 mmol/L (3.5-5.1)
[2020-02-03 15:08] LABS: BILIRUBIN,TOTAL 1.5 mg/dL (0.2-1); CALCIUM 8.1 mg/dL (8.5-10.1)
[2020-02-03] MEDS ORDERED: THIAMINE HCL 100 MG TABLET (FP) PO SCH (22:00)
[2020-02-03] MEDS ORDERED: MELATONIN 5 MG TABLETS PO SCH (22:00)
[2020-02-03] MEDS ORDERED: ATORVASTATIN CA 40 MG TABLET (FP) PO SCH (22:00)
[2020-02-04] MEDS: hydrOXYzine PAMOATE 25 MG CAPSULE (FP) PO SCH (05:21)
[2020-02-04] MEDS: LORazepam 2 MG TABLET PO SCH ×2 (05:21→05:43)
[2020-02-04] MEDS ORDERED: BICTEGRAV/EMTRICIT/TENOFOV (BIKTARVY) 50-200-25 MG TABLET PO SCH (08:00)
[2020-02-04] MEDS ORDERED: hydrOXYzine PAMOATE 25 MG CAPSULE (FP) PO PRN (08:42)
[2020-02-04] MEDS ORDERED: PRENATAL VITAMINS W/ FOLIC ACID TABLET (FP) PO SCH (10:00)
[2020-02-04 10:12] VITALS: BP 120/78; PULSE 101; TEMP 98.6
--- NOTE | 2020-02-04 11:42 | PN ---
S Progress Note Note: pt yelling at nurses station and in hallways, get me the fuck out of here. This place sucks and call security to get my shit. Pt was made aware of risk of relapse, seizure, DT, OD and/ loss. pt signed out AMA.
--- NOTE | 2020-02-04 11:44 | DS ---
[facility] Detox Discharge Summary Admission Date: 02/03/20 - History Present History: Alcohol Dependence, Cannabis Dependence, Cocaine Dependence - Physical Exam Results Vital Signs: Vital Signs Temperature 98.6 F 02/04/20 08:49 Pulse Rate 101 H 02/04/20 08:49 Respiratory Rate 20 02/04/20 08:49 Blood Pressure 120/78 02/04/20 08:49 O2 Sat by Pulse Oximetry (%) 96 02/04/20 08:49 Pertinent Admission Physical Exam Findings: Vital Signs Temperature 98.6 F 02/04/20 08:49 Pulse Rate 101 H 02/04/20 08:49 Respiratory Rate 20 02/04/20 08:49 Blood Pressure 120/78 02/04/20 08:49 O2 Sat by Pulse Oximetry (%) 96 02/04/20 08:49 Laboratory Tests 02/03/20 02/03/20 02/03/20 11:30 11:30 11:30 WBC 3.5 L RBC 3.53 L Hgb 12.5 Hct 36.8 MCV 104.2 H MCH 35.3 H D MCHC 33.9 RDW 14.3 Plt Count 141 MPV 8.3 Sodium 134 L Potassium 3.4 L Chloride 97 L Carbon Dioxide 14 L Anion Gap 23 H BUN 10.8 Creatinine 0.9 Est GFR (CKD-EPI)AfAm 114.21 Est GFR (CKD-EPI)NonAf 98.54 Random Glucose 161 H Calcium 8.1 L Total Bilirubin 1.5 H AST 154 H ALT 81 H Alkaline Phosphatase 103 Total Protein 8.0 Albumin 4.1 Syphilis Serology Non-reactive COVID-19 (FENG) 02/03/20 13:40 WBC RBC Hgb Hct MCV MCH MCHC RDW Plt Count MPV Sodium Potassium Chloride Carbon Dioxide Anion Gap BUN Creatinine Est GFR (CKD-EPI)AfAm Est GFR (CKD-EPI)NonAf Random Glucose Calcium Total Bilirubin AST ALT Alkaline Phosphatase Total Protein Albumin Syphilis Serology COVID-19 (FENG) Not detected aaox3 ambulating pt signed AMA - Treatment Patient has Accepted a Rehab Referral to: pt declined referral - Medication Discharge Medications: Ambulatory Orders Atorvastatin Calcium 40 mg PO HS 02/03/20 Bictegrav/Emtricit/Tenofov Ala [Biktarvy 50-200-25 mg Tablet] 1 each PO DAILY 02/03/20 Buprenorphine HCl/Naloxone HCl [Buprenorp-Nalox 8-2 mg Sl Film] 1 each SL TID 02/03/20 Sacubitril/Valsartan [Entresto 49 mg-51 mg Tablet] 1 each PO BID 02/03/20 - Diagnosis (1) Alcohol dependence with uncomplicated withdrawal Status: Acute (2) Cannabis abuse, uncomplicated Status: Acute (3) Cannabis dependence Status: Acute (4) Cocaine abuse, uncomplicated Status: Acute (5) Cocaine dependence Status: Acute (6) ETOH abuse Status: Acute (7) Nicotine dependence Status: Acute Qualifiers: Nicotine product type: cigarettes Substance use status: uncomplicated Qualified Code(s): F17.210 - Nicotine dependence, cigarettes, uncomplicated (8) HIV (human immunodeficiency virus infection) Status: Chronic (9) Hepatitis C Status: Chronic Qualifiers: Viral hepatitis chronicity: chronic Hepatic coma status: without hepatic coma Qualified Code(s): B18.2 - Chronic viral hepatitis C (10) History of positive PPD Status: Chronic - AMA Did Patient Leave Against Medical Advice: Yes
[2020-02-04] MEDS ORDERED: QUEtiapine FUMARATE 50 MG TABLET PO SCH (22:00)
[2020-02-05] MEDS ORDERED: LORazepam 1 MG TABLET PO SCH (05:00)
[2020-02-06] MEDS ORDERED: LORazepam 0.5 MG TABLET PO PRN
[2020-02-06] MEDS ORDERED: LORazepam 0.5 MG TABLET PO SCH (05:00)
[2020-02-07] MEDS ORDERED: LORazepam 0.5 MG TABLET PO ONE (05:00)
== END 2020-02-04 10:23 | disposition left against medical advice (07) | DRG 770 ==
LOC: YASAS 09:33 → Y6N 11:41
PROVIDERS: ADMIT Allergy & Immunology; ATTEND Allergy & Immunology
PROC: HZ2ZZZZ Detoxification Services for Substance Abuse Treatment (ICD-10-PCS; principal; 2020-02-03)
DX: F10.230 Alcohol dependence with withdrawal, uncomplicated (principal); F14.20 Cocaine dependence, uncomplicated; F12.20 Cannabis dependence, uncomplicated; F17.210 Nicotine dependence, cigarettes, uncomplicated; Z21 Asymptomatic human immunodeficiency virus [HIV] infection status; I10 Essential (primary) hypertension; B18.2 Chronic viral hepatitis C; Z96.651 Presence of right artificial knee joint; Z96.643 Presence of artificial hip joint, bilateral; Z86.69 Personal history of other diseases of the nervous system and sense organs; Z87.81 Personal history of (healed) traumatic fracture
CPT/HCPCS: 36415; 80053; 85027; 86780; C9803; U0003